=== PATIENT | female | born 1940 | race Caucasian/White ===

== ENCOUNTER → 2023-06-11 | Outpatient (CLI) | payer MEDICARE, SELFPAY ==
--- OUTSIDE RECORDS SUMMARY | 2023-06-11 10:58 | XMS RPT_ITS | CCD ---
Author Name Unknown Address [address] [place] [address] [address] [place] [address] Organization [facility] Care Team Providers Care Conference Manager Name Role Phone AURORA AMARO DO Primary Care Physician [phone] DR DIANE CALI DO Primary Care Physician [phone] DR DIANE CALI DO Attending Unavailable DR DIANE CALI DO Primary Care Unavailable Unavailable Primary Care Provider KACIE Long Attending Unavailable Allergies Allergy Classification Reported Allergen(s) Allergy Type Date of Onset Reaction(s) Facility (2 sources) HMG-CoA reductase inhibitor; Translations: [statins] Propensity to adverse reactions to drug Muscle pain (finding) [facility] Work Phone: (3 sources) Iodine; Translations: [iodine] Drug Allergy 3 Eruption (morphologic abnormality) [facility] Work Phone: (3 sources) Sulfonamides (Antibiotic); Translations: [sulfa drugs] Drug allergy 3 Eruption of skin (disorder), Rash [facility] Work Phone: Medications Current Medications Medication Drug Class(es) Dates Sig (Normalized) Sig (Original) 8 hr acetaminophen 650 mg extended release oral tablet (2 sources) Start: 10-22-2018 Tylenol 8 HR Arthritis Pain 650 mg oral tablet, extended release Dose : 650 mg = 1 tab(s), Oral, q8h, 0 Refill(s) Start Date: 10/22/18 Status: Ordered ALPRAZolam 0.25 mg oral tablet (1 source) Benzodiazepine Start: 01-16-2023 End: 02-15-2023 ALPRAZolam 0.25 mg oral tablet Dose : 0.25 mg = 1 tab(s), Oral, qDay, PRN as needed for anxiety, X 30 day(s), # 30 tab(s), 0 Refill(s), 02/15/23 9:07:00 AM EDT, Pharmacy: [facility]/pharmacy #[id number], Anxiety, 159.5, cm, 01/16/23 8:22:00 EDT, Height, 60.1, kg, 01/16/23 8:22:00 EDT, Dosing Weight Start Date: 01/16/23 Stop Date: 02/15/23 Status: Ordered biotin 10 mg oral tablet (2 sources) Start: 05-04-2021 biotin 10 mg oral tablet Dose : 10 mg = 1 tab(s), Oral, qDay, # 30 tab(s), 0 Refill(s) Start Date: 05/04/21 Status: Ordered cetirizine hydrochloride 10 mg oral tablet (2 sources) Histamine-1 Receptor Antagonist Start: 10-22-2018 Zyrtec 10 mg oral tablet Dose : 10 mg = 1 tab(s), Oral, qDay, # 30 tab(s), 0 Refill(s) Start Date: 10/22/18 Status: Ordered Elderberry preparation (1 source) Start: 11-02-2021 elderberry oral liquid 0 Refill(s) Start Date: 11/02/21 Status: Ordered fluticasone propionate 0.05 mg/actuat metered dose nasal spray (2 sources) Corticosteroid Start: 01-12-2020 take 1 dose nasal route once daily in the morning fluticasone proprionate NASAL 50 mcg/ spray Dose = 1 spray(s), Nostril, each, qAM, 0 Refill(s) Start Date: 01/12/20 Status: Ordered hydroCHLOROthiazide 25 mg / lisinopril 20 mg oral tablet (3 sources) Thiazide Diuretic, Angiotensin Converting Enzyme Inhibitor Start: 01-16-2023 End: 07-15-2023 take 1 tablet by mouth once daily lisinopril-hydr oCHLOROthiazide 20-25 MG tablet Take 1 tablet by mouth daily. 0 01/16/2023 Active Problems Problem Classification Problem Date Documented Da te Episodic/Chronic Anxiety disorders (2 sources) Anxiety 01-19-2020 Chronic Cataract (2 sources) Cataract 05-04-2021 Chronic Conditions associated with dizziness or vertigo (2 sources) Benign paroxysmal positional vertigo 01-12-2020 Episodic Diabetes mellitus without complication (4 sources) Prediabetes; Translations: [Prediabetes] Onset: 10-12-2021 Episodic Disorders of lipid metabolism (2 sources) Hyperlipidemia 01-14-2020 Chronic Essential hypertension (2 sources) Hypertensive disorder 01-12-2020 Chronic Osteoarthritis (3 sources) Osteoarthritis; Translations: [Osteoarthritis of knee] 01-12-2020 Chronic Other bone disease and musculoskeletal deformities (1 source) Cervical somatic dysfunction 10-04-2020 Episodic Other bone disease and musculoskeletal deformities (1 source) Somatic dysfunction of rib 10-04-2020 Episodic Other bone disease and musculoskeletal deformities (2 sources) Somatic dysfunction of thoracic region 10-04-2020 Episodic Other connective tissue disease (1 source) Bilateral spasm of muscle of calves; Translations: [Other muscle spasm] 04-08-2023 Episodic Other connective tissue disease (2 sources) Other muscle spasm; Translations: [Other muscle spasm] Onset: 04-08-2023 Episodic Other eye disorders (2 sources) Ptosis of eyelid 05-04-2021 Episodic Other nutritional; endocrine; and metabolic disorders (1 source) Body mass index 25-29 - overweight 05-04-2021 Episodic Other skin disorders (2 sources) Actinic keratosis 10-04-2020 Episodic Other skin disorders (1 source) Multiple actinic keratoses 01-12-2020 Episodic Other upper respiratory disease (2 sources) Seasonal allergy 01-12-2020 Chronic Residual codes; unclassified (1 source) Immunization due 01-12-2020 Episodic Residual codes; unclassified (2 sources) Insomnia 01-19-2020 Episodic Residual codes; unclassified (1 source) Memory impairment 11-02-2021 Episodic Spondylosis; intervertebral disc disorders; other back problems (2 sources) Backache 10-04-2020 Episodic Sprains and strains (3 sources) Hamstring injury; Translations: [Strain of muscle, fascia and tendon of the posterior muscle group at thigh level, unspecified thigh, initial encounter] Onset: 04-08-2023 04-08-2023 Episodic Unclassified (4 sources) Patient encounter status 01-12-2020 Unclassified (3 sources) Seborrheic keratosis 01-12-2020 Results Test Name Value Interpretation Reference Range Facil ity Vital Signs Date Time Vital Sign Value Performing Clinician Faci lity 12-17-2023 11:45-0500 Body height 160 cm Kacie Alvarado DO Work Phone: [facility] 04-08-2023 11:45-0500 Body mass index (BMI) [Ratio] 23.74 kg/m2 Kacie Alvarado DO Work Phone: [facility] 04-08-2023 11:45-0500 Body temperature 97.2 [degF] Kacie Alvarado DO Work Phone: [facility] 04-08-2023 11:45-0500 Body weight 60.78 kg Kacie Alvarado DO Work Phone: [facility] 04-08-2023 11:45-0500 Diastolic blood pressure 64 mm[Hg] Kacie Alvarado DO Work Phone: [facility] 04-08-2023 11:45-0500 Heart rate 74 /min Kacie Alvarado DO Work Phone: [facility] 04-08-2023 11:45-0500 SaO2% (BldA) [Mass fraction] 98 % Kacie Alvarado DO Work Phone: [facility] 04-08-2023 11:45-0500 Systolic blood pressure 132 mm[Hg] Kacie Alvarado DO Work Phone: [facility] [employer] Encounters Encounter Date Encounter Type Care Provider Facility Start: 04-08-2023 End: 04-09-2023 ambulatory KACIE MAGGIE [facility] [employer] [facility] Start: 04-08-2023 End: 04-08-2023 Office outpatient new 30 minutes Kacie Alvarado DO Work Phone: [facility] [employer] [facility] Procedures Date Procedure Procedure Detail Performing Clinician Start: 08-04-[address] DIANE CALI DO Plan of Treatment Date Care Activity Detail Author Start: 01-11-2030 DTaP/Tdap/Td Vaccine s (2 - Td or Tdap) DTaP/Tdap/Td Vaccines (2 - Td or Tdap) [facility] [employer] Start: 12-22-2022 COVID-19 Vaccine (2022- season) COVID-19 Vaccine ( season) [facility] Start: 2001 RSV Immunization age d 60 or older (1 - 1-dose 60+ series) RSV Immunization aged 60 or older (1 - 1-dose 60+ series) [facility] Start: 1953 Depression Screening Depression Scre ening [facility] Start: 1941 Lipid panel Lipid Panel [place] Start: 1941 Medicare Advantage A nnual Wellness Visit (AWV) Medicare Advantage Annual Wellness Visit (AWV) [facility] Start: 1940 Screening for osteoporosis Bone Dens ity Scan [facility] Immunizations Immunization Date Immunization Notes Care Provider Fa cility 02-12-2022 influenza virus vaccine, unspecified formulation DR DIANE CALI DO [facility] 11-08-2021 SARS-CoV-2 (COVID-19 ) [id number] DIANE CALI DO [facility] Payers Date Payer Category Payer Medicare [employer] [id number] 2022-Present [address] [place] [address] Medicare HMO [id number] 2022 Unknown [id number] 1940 Unknown [id number] Social History Date Type Detail Facility Start: 10-21-2018 End: 04-08-2023 Tobacco smoking status Never smoked tobacco (finding) [facility] Sex Assigned At Sex [facility] Start: 04-08-2023 Tobacco use and exposure Smokeless tobacco non-user [facility] Start: 04-08-2023 Alcohol intake Current drinke r of alcohol (finding) [facility] Start: 04-08-2023 History of Social function [facility] Start: 04-08-2023 Tobacco use panel [facility] Start: 1940 Sex Assigned At Not on file S [facility] History of Present illness Narrative 04-08-2023 Leah Macedo MA - 04/08/2023 11:50 AM Trinidad Alvarado DO - 04/08/2023 11:50 AM EST Note Date & Type Note Facility 04-08-2023 History of Presen t illness Narrative Pt verified by name and . Chief Complaint Patient presents with Spasms Pt states she has had back spasms for 2 weeks. Pt states she has took aleve for sx's. No LMP recorded. History: Past Medical History: Diagnosis Date Hypertension History reviewed. No pertinent surgical history. No family history on file. Social History Socioeconomic History Marital status: Tobacco Use Smoking status: Never Smokeless tobacco: Never Vaping Use Vaping Use: Never used Substance and Sexual Activity Alcohol use: Yes Drug use: Never Allergies: Allergies Allergen Reactions Iodine Other reaction(s): Rash BETADINE Sulfa Antibiotics Rash Medications: Current Outpatient Medications on File Prior to Visit Medication Sig Dispense Refill lisinopril-hydroCHLOROthiazide 20-25 MG tablet Take 1 tablet by mouth daily. No current facility-administered medications on file prior to visit. HPI: HPI Back spasms x2 weeks Feels tight across her butt Ok sitting but worse when trying to Did a lot of bending, lifting and twisting to put up alexis tree Worsened over the last couple of days No LE numbness/weakness, no saddle anesthesia, no incontinence Went to PCP and has sacroiliac in place Unable to see PCP until Grandmother can barely walk, usually super active ROS: Review of Systems Musculoskeletal: Positive for arthralgias and gait problem. Neurological: Negative for weakness and numbness. exam: BP 132/64 Pulse 74 Temp 36.2 C (97.2 F) Ht 5' 3 (1.6 m) Wt 134 lb (60.8 kg) SpO2 98% BMI 23.74 kg/m Physical Exam Vitals reviewed. Constitutional: General: She is not in acute distress. Appearance: Normal appearance. She is not ill-appearing. HENT: Head: Normocephalic and atraumatic. Cardiovascular: Rate and Rhythm: Normal rate. Pulmonary: Effort: No respiratory distress. Musculoskeletal: General: Tenderness present. No swelling or deformity. Comments: Normal flexion, extension, Left and Right SB, Left and Right rotation. No TTP along midline thoracic, lumbar or sacral spine or musculature TTP over ischial tuberosity bilaterally Muscle strength 5/5 edward LE Sensation equal edward LE SLR neg edward Skin: General: Skin is warm. Capillary Refill: Capillary refill takes less than 2 seconds. Findings: No rash. Neurological: General: No focal deficit present. Mental Status: She is alert and oriented to person, place, and time. Motor: No weakness. Gait: Gait abnormal (antalgic, using cane). Assessment and Plan: Emma was seen today for spasms. Diagnoses and all orders for this visit: Muscle spasm of both lower legs (Primary) - methylPREDNISolone (Medrol Dospak) 4 MG tablets; Follow schedule on package instructions Hamstring strain, unspecified laterality, initial encounter - methylPREDNISolone (Medrol Dospak) 4 MG tablets; Follow schedule on package instructions Presents with granddaughter for lower back pain that she describes as spasms. On exam pain is in lower gluteus muscles and is most pronounced when changing position from sitting to standing. Exam is negative for and thoracic, lumbar or sacral spinal TTP. No thoracic, lumbar or sacral muscular TTP. There is TTP over ischial tuberosity where hamstrings attach - more pronounced on LLE than RLE. Suspect likely muscle strain/spasm 2/2 to increased activity at home (setting up holiday decorations). Will treat supportively. Medrol dose pack sent to pharmacy. Patient counseled to utilize heat and gentle stretching 2-3 times daily. Discussed with patient and granddaughter should patient develop any lower extremity numbness or weakness, loss of control of your bowel or bladder, decreased sensation in your genital area, inability to urinate despite the urge, increasing difficulty with walking, worsening/severe pain please be evaluated in the emergency room immediately. Both voiced understanding and are agreeable. documented in this encounter [facility] Instructions 04-08-2023 Patient InstructionsAttachments Note Date & Type Note Facility 04-08-2023 Instructions Kacie Alvarado DO - 04/08/2023 11:50 AM EST Do not take any ibuprofen/Aleve/Motrin/Advil while taking the steroid. Okay to utilize any 1 of the above listed NSAIDs after you complete the course of steroids. Okay to utilize Tylenol while taking the steroids. Okay for 500 mg every 4 hours or 1000 mg every 8 hours. Please do not exceed 3000 mg of Tylenol in 24 hours. Okay for heat several times daily as time allows. If you develop any lower extremity numbness or weakness, loss of control of your bowel or bladder, decree sensation in your genital area, inability to urinate despite the urge, increasing difficulty with walking, worsening/severe pain please be evaluated in the emergency room immediately The following attachments cannot be sent through Care Everywhere.Muscle Spasms Discharge Instructions (Angolan)Hamstring Muscle Strain Discharge Instructions (Angolan)documented in this encounter [facility] Evaluation + Plan note Note Date & Type Note Facility Evaluation + Plan note Future Appointments Appointment Date:11/02/2021 09:30:00 AM Scheduled Provider:AURORA AMARO DO Location:[facility] Appointment Type:PC Wellness Medicare Appointment Date:12/07/2021 08:30:00 AM Scheduled Provider:AUROAR AMARO DO Location:[facility] Appointment Type:PC OV Pre Op [facility] Evaluation + Plan note Radiology Note Date & Type Note Facility Evaluation + Plan note Future Appointments Appointment Date:07/17/2023 09:00:00 AM Scheduled Provider:DIANE CALI DO Location:[facility] Appointment Type:PC OV Future Scheduled TestsBD Bone Density DEXA Axial Skeleton 02/02/22 [facility] Evaluation note Note Date & Type Note Facility documented in this encounter [facility] course Narrative Note Date & Type Note Facility Hospital course Narrative No data available for this section [facility] Hospital Discharge instructions Note Date & Type Note Facility Hospital Discharge instructions No data available for this section [facility] Progress note Note Date & Type Note Facility Progress note No data available for this section [facility] Summary Purpose Family History No Family History Records Found Advance Directives No Advanced Directives Records FoundNo Advanced Directives Records Found Additional Source Comments Care Team (unrecognized sect ion and content) Personnel Name: PREM AURORA Address: Address: [address] [place] [address] Patient Care team informatio n (unrecognized section and content) Care Team Personnel Name: DIANE CALI DO Position: P4 Physician - Primary Care Member Role: Primary Care Physician Address: Address: [address] [place] [address] Care Team Related Persons Name: IRIS SHETH INFORMATION SOURCE (unrecogn ized section and content) DATE CREATED AUTHOR AUTHOR'S ORGANIZ ATION 04/13/2023 [facility] Reason for Visit (unrecogniz ed section and content) FOR RECORDS PERTAINING TO PATIENTS WHO ARE OR HAVE BEEN ENROLLED IN A CHEMICAL DEPENDENCY/SUBSTANCEABUSE PROGRAM, SOME INFORMATION MAY BE OMITTED. This clinical summary was aggregated from multiple sources. Caution should be exercised in using it in the provision of clinical care. This summary normalizes information from multiple sources, and as a consequence, information in this document may materially change the coding, format and clinical context of patient data. In addition, data may be omitted in some cases. CLINICAL DECISIONS SHOULD BE BASED ON THE PRIMARY CLINICAL RECORDS. [facility] [employer] [facility]. provides no warranty or guarantee of the accuracy or completeness of information in this document.
== END | disposition home or self-care (01) ==
LOC: LABSPEC 10:26
PROVIDERS: Referring Provider Nurse Practitioner Family; Visit Provider Nurse Practitioner Family
DX: N39.0 Urinary tract infection, site not specified (principal)
CPT/HCPCS: 87086; 87088